=== PATIENT | female | born 1990 | race Caucasian/White ===

== ENCOUNTER 2021-02-13 19:15 | Inpatient (IN) | payer OTHER ==
[~2021-02-13] VITALS: Ht 160 cm; Wt 58.1 kg
[~2021-02-13 19:15] MED LIST: DIFLUCAN150 MG PO; FLAGYL500 MG PO
[2021-02-13 23:31] LABS: BASOPHIL 0.5 % (0-2); EOSINOPHIL 0 % (0-5); HCT 43.2 % (37.0-47.0); HGB 14.5 g/dl (12.5-16.0); LYMPHOCYTE 8.5 % (15-48); MCH 32.5 pg (25.0-31.0); MCHC 33.6 g/dL (32.0-36.0); MCV 96.9 fL (78.0-100.0); MONOCYTE 4.2 % (0-12); MPV 9.9 fL (6.0-9.5); NEUTROPHIL 86.5 % (41-80); NRBC 0; PLT 275 K/uL (150-400); RBC 4.46 M/uL (4.20-5.40); RDW 12.9 % (11.5-14.0); WBC 14.7 K/uL (4.0-10.5)
[2021-02-13 23:38] LABS: ALBUMIN 4.5 g/dL (3.4-5.0); BILIRUBIN - TOTAL 0.4 mg/dL (0.2-1.0); BUN/CREAT RATIO (CALC) 18.9 RATIO; CREATININE 0.53 mg/dL (0.51-0.95); GLOBULIN (CALCULATION) 3.5 g/dL; POTASSIUM 3.8 mmol/L (3.5-5.1)
[2021-02-13 23:39] LABS: BILIRUBIN NEGATIVE (NEGATIVE); BLOOD TRACE-INTACT Ery/uL (NEGATIVE); CLARITY CLEAR (CLEAR); COLOR YELLOW (YELLOW); GLUCOSE (U) NORMAL (NORMAL); LEUKOCYTES NEGATIVE Leu/uL (NEGATIVE); NITRITE NEGATIVE (NEGATIVE); PROTEIN NEGATIVE (NEGATIVE); SPECIFIC GRAVITY 1.015 (1.001-1.030); UROBILINOGEN 0.2 mg/dL (0.2-1.0)
[2021-02-13 23:54] LABS: URINARY RBC RARE
[2021-02-14 03:49] LABS: HCG (URINE) SCREEN NEGATIVE (NEGATIVE)
[2021-02-14 07:59] LABS: BASOPHIL 0.4 % (0-2); EOSINOPHIL 0.3 % (0-5); HCT 39.6 % (37.0-47.0); HGB 12.9 g/dl (12.5-16.0); LYMPHOCYTE 18.7 % (15-48); MCH 32.1 pg (25.0-31.0); MCHC 32.6 g/dL (32.0-36.0); MCV 98.5 fL (78.0-100.0); MONOCYTE 6.4 % (0-12); MPV 9.8 fL (6.0-9.5); NEUTROPHIL 73.9 % (41-80); NRBC 0; PLT 200 K/uL (150-400); RBC 4.02 M/uL (4.20-5.40); RDW 12.8 % (11.5-14.0); WBC 7.3 K/uL (4.0-10.5)
[2021-02-14 08:23] LABS: CHOLESTEROL 172 mg/dL (<200); HDL 105 mg/dL (40-60); LDL - DIRECT 57 mg/dL (<100); TRIGLYCERIDES 33 mg/dL (<150)
[2021-02-14 08:48] LABS: ALBUMIN 3.7 g/dL (3.4-5.0); ALKALINE PHOSHATASE 105 U/L (46-116); ALT 52 U/L (14-59); AST 92 U/L (15-37); BILIRUBIN - TOTAL 0.3 mg/dL (0.2-1.0); BUN 9 mg/dL (7-18); BUN/CREAT RATIO (CALC) 16.7 RATIO; CHLORIDE 104 mmol/L (98-107); CO2 (BICARBONATE) 26 mmol/L (21-32); CREATININE 0.54 mg/dL (0.51-0.95); GLUCOSE 82 mg/dL (74-106); LIPASE >2250 U/L (73-393); POTASSIUM 3.6 mmol/L (3.5-5.1); TOTAL PROTEIN 6.7 g/dL (6.4-8.2)
[2021-02-15 07:30] LABS: BASOPHIL 0.6 % (0-2); EOSINOPHIL 1.9 % (0-5); HCT 37.5 % (37.0-47.0); HGB 12.3 g/dl (12.5-16.0); LYMPHOCYTE 29.5 % (15-48); MCH 32.4 pg (25.0-31.0); MCHC 32.8 g/dL (32.0-36.0); MCV 98.7 fL (78.0-100.0); MPV 10.1 fL (6.0-9.5); NEUTROPHIL 57.7 % (41-80); NRBC 0; PLT 181 K/uL (150-400); RDW 12.6 % (11.5-14.0); WBC 3.6 K/uL (4.0-10.5)
[2021-02-15 08:01] LABS: BUN/CREAT RATIO (CALC) 12.5 RATIO; CREATININE 0.56 mg/dL (0.51-0.95); POTASSIUM 3.6 mmol/L (3.5-5.1)
--- NOTE | 2021-02-16 22:38 | NUR ---
2105-DISCHARGE INSTRUCTIONS GIVEN STATES UNDERSTANDING, PAPERWORK GIVEN TO F/U WITH PRIMARY FOR CONSULT WITH GI.RETURN TO WORK GIVEN FOR 02/23/21. CONDITION STABLE, INFORMED TO RETURN TO ER FOR INCREASE PAIN, N&V OR FEVER. STATES UNDERSTANDING. TO ER ENTRANCE VIA W/C PER VENEER REDRIER.
== END 2021-02-16 21:05 | disposition home or self-care (01) | DRG 438 ==
LOC: FER 19:15 → FMS 02-14 00:50
PROVIDERS: Internal Medicine; Nurse Practitioner; Nurse Practitioner Acute Care; ADMIT Internal Medicine
PROC: 8E0ZXY6 Isolation (ICD-10-PCS; principal; 2021-02-14)
DX: K85.00 Idiopathic acute pancreatitis without necrosis or infection (principal); U07.1 COVID-19; F11.20 Opioid dependence, uncomplicated; R51.9 Headache, unspecified; Z98.51 Tubal ligation status
CPT/HCPCS: 36415; 74181; 76705; 80048; 80053; 80061; 81001; 83690; 84145; 84703; 85025; J0696; J1170; J1650; J1885; J2405; J7030; J7120; U0002